=== PATIENT | female | born 2005 | race Caucasian/White ===

== ENCOUNTER 2024-08-04 15:20 | Inpatient (IN) | payer BC ==
[~2024-08-04] VITALS: Ht 160 cm; Wt 81.6 kg
[2024-08-04] MEDS ORDERED: ONDANSETRON HCL 4MG/2ML INJ IV ONE (16:00)
[2024-08-04] MEDS: MORPHINE SULFATE 4 MG/ML INJ (FOR IV/IM USE) IV ONE (16:00)
[2024-08-04 17:19] LABS: BASOPHILS % 0.1 % (0.0-2.0); EOSINOPHILS % 0.1 % (0.0-5.0); HEMATOCRIT. 45.4 % (36.0-48.0); HEMOGLOBIN. 15.2 g/dL (12.0-16.0); LYMPHOCYTES % 11.4 % (20.0-50.0); MEAN CORPUSCULAR HEMOGLOBIN 28.9 pg (28.0-32.0); MEAN CORPUSCULAR HGB CONC 33.6 g/dL (31.0-37.0); MEAN CORPUSCULAR VOLUME 86.2 fL (81.0-99.0); MEAN PLATELET VOLUME 8.1 fl (7.4-10.4); MONOCYTES % 5.9 % (2.0-8.0); NEUTROPHILS % 82.5 % (40.0-76.0); PLATELET 303 x1000/uL (130-400); RED BLOOD CELL COUNT 5.26 mill/uL (4.2-5.4); RED CELL DISTRIBUTION WIDTH 13.2 % (11.6-14.6); WHITE BLOOD COUNT 9.7 x1000/uL (4.5-11.0)
[2024-08-04 17:23] LABS: CHLORIDE 104 mEq/L (98-107); POTASSIUM 3.3 mEq/L (3.5-5.1); SODIUM 137 mEq/L (136-145)
[2024-08-04 17:24] LABS: PROTHROMBIN TIME 10.7 sec (9.6-11.0)
[2024-08-04 17:25] LABS: CALCIUM 9.3 mg/dL (8.7-10.4); CARBON DIOXIDE 25 mEq/L (21-32)
[2024-08-04 17:30] LABS: CREATININE 0.9 mg/dL (0.6-1.0); GLUCOSE 103 mg/dL (70-105); UREA NITROGEN BLOOD 11 mg/dL (9-23)
[2024-08-04 17:32] LABS: ALANINE AMINOTRANSFERASE 16 IU/L (10-49); ALBUMIN 4.9 g/dL (3.2-4.8); ASPARTATE AMINOTRANSFERASE 18 IU/L (<34); BILIRUBIN DIRECT 0.4 mg/dL (<=3.0)
[2024-08-04 17:33] LABS: BILIRUBIN TOTAL 1.2 mg/dL (0.1-1.0); PROTEIN TOTAL 8.3 g/dL (6.0-8.3)
[2024-08-04 17:37] LABS: HCG SCREEN NEGATIVE
[2024-08-04] MEDS: SODIUM CHLORIDE 0.9% 1,000 ML IV ONE (19:01)
[2024-08-04] MEDS ORDERED: DOCUSATE SODIUM 100MG CAPSULE PO PRN (20:45)
[2024-08-04] MEDS ORDERED: CLONIDINE 0.1MG TABLET PO PRN (20:45)
[2024-08-04] MEDS ORDERED: POTASSIUM CHLORIDE 40 MEQ in DEXT 5% WATER 230 ML IV ONE (20:45)
[2024-08-04] MEDS ORDERED: ACETAMINOPHEN 325MG TABLET PO PRN ×2 (20:45)
[2024-08-04] MEDS ORDERED: IPRATROPIUM/ALBUTEROL 0.5-3(2.5)MG/3ML NEB HHN PRN (20:45)
[2024-08-04] MEDS ORDERED: MAGNESIUM/ALUMINUM HYDROXIDE/SIMETHICONE 30ML UDC PO PRN (20:45)
[2024-08-04] MEDS ORDERED: GUAIFENESIN 200MG/10ML SUGAR FREE UDC PO PRN (20:45)
[2024-08-04] MEDS: ONDANSETRON HCL 4MG/2ML INJ IV NR (22:07)
[2024-08-04 22:49] LABS: CHLORIDE 106 mEq/L (98-107); SODIUM 138 mEq/L (136-145)
[2024-08-04 22:50] LABS: CALCIUM 8.6 mg/dL (8.7-10.4); CARBON DIOXIDE 25 mEq/L (21-32)
[2024-08-04 22:55] LABS: CREATININE 0.8 mg/dL (0.6-1.0); GLUCOSE 94 mg/dL (70-105); UREA NITROGEN BLOOD 10 mg/dL (9-23)
[2024-08-04 22:57] LABS: PHOSPHORUS 2.7 mg/dL (2.5-4.9)
[2024-08-04] MEDS ORDERED: IOHEXOL-300 100 ML BOTTLE ONE (23:07)
[2024-08-05] MEDS: MORPHINE SULFATE 2 MG/ML INJ (NOT FOR IM USE) IV PRN (01:18)
[2024-08-05] MEDS: KCL 20MEQ/100ML X 2 FOR TOTAL KCL 40MEQ/200ML IV SCH (01:22)
[2024-08-05] MEDS: DEXT 5%/0.45% NACL 1000ML 1,000 ML IV SCH (01:23)
[2024-08-05 04:31] LABS: CARBON DIOXIDE 25 mEq/L (21-32); CHLORIDE 108 mEq/L (98-107); SODIUM 140 mEq/L (136-145)
[2024-08-05 04:32] LABS: CALCIUM 8.6 mg/dL (8.7-10.4)
[2024-08-05 04:37] LABS: CREATININE 0.8 mg/dL (0.6-1.0); GLUCOSE 99 mg/dL (70-105); TRIGLYCERIDE 89 mg/dL (0-150); UREA NITROGEN BLOOD 8 mg/dL (9-23)
[2024-08-05 04:38] LABS: LDL CHOLESTEROL 69 mg/dL (5-100)
[2024-08-05 04:39] LABS: CHOLESTEROL 114 mg/dL (<200); HDL CHOLESTEROL 33 mg/dL (>65)
[2024-08-05 04:43] LABS: THYROID STIMULATING HORMONE 2.61 uIU/mL (0.55-4.78)
[2024-08-05 06:30] LABS: BASOPHILS % 0.3 % (0.0-2.0); EOSINOPHILS % 0.8 % (0.0-5.0); HEMATOCRIT. 39.7 % (36.0-48.0); HEMOGLOBIN. 13.3 g/dL (12.0-16.0); LYMPHOCYTES % 24.5 % (20.0-50.0); MEAN CORPUSCULAR HGB CONC 33.5 g/dL (31.0-37.0); MEAN CORPUSCULAR VOLUME 86.4 fL (81.0-99.0); MEAN PLATELET VOLUME 8.2 fl (7.4-10.4); MONOCYTES % 8.8 % (2.0-8.0); NEUTROPHILS % 65.6 % (40.0-76.0); PLATELET 244 x1000/uL (130-400); RED BLOOD CELL COUNT 4.59 mill/uL (4.2-5.4); RED CELL DISTRIBUTION WIDTH 13.1 % (11.6-14.6); WHITE BLOOD COUNT 6.3 x1000/uL (4.5-11.0)
[2024-08-05 09:00] VITALS: BP 106/71; PULSE 86; RESP 18; TEMP 37.1408
[2024-08-05] MEDS: PANTOPRAZOLE SODIUM 40 MG/VIAL IV SCH (11:20)
[2024-08-05 12:00] VITALS: BP_SYST 102; BP_SYST 103; BP_DIAS 56; BP_DIAS 57; PULSE 74; PULSE 76; RESP 18; TEMP 36.83628; O2SAT 100
[2024-08-05] MEDS: ONDANSETRON HCL 4MG/2ML INJ IV PRN (13:26)
[2024-08-05 16:00] VITALS: BP 102/56; PULSE 74; RESP 18; TEMP 36.3918; TEMP 36.39180; O2SAT 100
[2024-08-05] MEDS ORDERED: NALOXONE HCL 0.4MG/ML VIAL IV PRN (17:30)
[2024-08-05] MEDS: BISACODYL 5MG TABLET PO NR (17:37)
[2024-08-05 18:06] VITALS: BP 102/56; PULSE 74; TEMP 97.5; O2SAT 100
[2024-08-05 18:12] LABS: HEPATITIS B SURFACE ANTIGEN NEGATIVE (Negative)
[2024-08-05 18:34] LABS: HEPATITIS C AB NON REACTIVE (Neg) (Negative)
== END 2024-08-05 18:55 | disposition home or self-care (01) | DRG 392 ==
LOC: ER 15:20 → EDBEDREQSVC 17:19 → EDBEDREQ 17:19 → 5WST 23:55 → 6EST 08-05 09:05
PROVIDERS: ADMIT Preventive Medicine Clinical Informatics; ATTEND Preventive Medicine Clinical Informatics
DX: K52.9 Noninfective gastroenteritis and colitis, unspecified (principal); E87.6 Hypokalemia; E78.5 Hyperlipidemia, unspecified; Z60.2 Problems related to living alone; E80.6 Other disorders of bilirubin metabolism
CPT/HCPCS: 36415; 74177; 76830; 76856; 80048; 80061; 80076; 83735; 84100; 84439; 84443; 84703; 85025; 86705; 86850; 86900; 87340; 93005; 99285; J2270; J2405; J2470; J3480; J7030; Q9967